=== PATIENT | male | born 1990 | race American Indian/Alaskan Native ===

== ENCOUNTER 2019-04-18 18:47 | Emergency (ER) | payer MEDICAID ==
--- NOTE | 2019-04-18 19:07 | EDM.PDOC ---
ED HPI GENERAL MEDICAL PROBLEM - General Chief Complaint: Drug or Alcohol Abuse Stated Complaint: [facility] Time Seen by Provider: 04/18/19 19:00 Source of Information: Reports: Residential Records History Limitations: Reports: Other (Patient is nonverbal.) - History of Present Illness INITIAL COMMENTS - FREE TEXT/NARRATIVE: Patient is brought by ambulance from his correction setting apparently because staff there wants to find out if he is using methamphetamine. He has been seen with a similar concern 24 hours ago at [facility] in [place]. He was kept overnight due to weather and discharged back to his facility. We have no records accompanying him regarding these concerns. Onset: Unknown/Unsure Duration: Day(s): Severity: Mild - Related Data Allergies Allergy/AdvReac Type Severity Reaction Status Date / Time amoxicillin [From Augmentin] Allergy Cannot Verified 04/18/19 19:57 Remember clavulanic acid Allergy Cannot Verified 04/18/19 19:57 [From Augmentin] Remember codeine Allergy Cannot Verified 04/18/19 19:57 Remember diazepam [From Valium] Allergy Cannot Verified 04/18/19 19:57 Remember Penicillins Allergy Cannot Verified 04/18/19 19:57 Remember phenobarbital Allergy Cannot Verified 04/18/19 19:57 Remember vancomycin Allergy Cannot Verified 04/18/19 19:57 Remember Home Meds: Home Meds Amitriptyline [Elavil] 04/18/19 [History] Divalproex Sodium [Depakote Sprinkle] 4 cap PO TID 04/18/19 [History] Erythromycin Base [Erythromycin 0.5% Ophth Oint] 1 strip EYEBOTH DAILY 04/18/19 [History] Topiramate 1 tab PO BID 04/18/19 [History] levETIRAcetam [Keppra] 1 tab PO BID 04/18/19 [History] ED ROS GENERAL - Review of Systems Review Of Systems: Unable To Obtain (The patient will nod his head yes or no to questions but it is difficult to know how well he has processing my request for information.) Reason Not Obtained: The patient is nonverbal. Constitutional: Denies: Fever HEENT: Reports: No Symptoms Respiratory: Reports: No Symptoms Cardiovascular: Reports: No Symptoms Psychiatric: Denies: Agitation ED EXAM, GENERAL - Physical Exam Exam: See Below Exam Limited By: Language Barrier (The patient does not communicate verbally but nods his head yes or no to questions. He is standing in the room as I come to speak with him and appears to prefer that to sitting in a chair.) General Appearance: Alert, No Apparent Distress Neck: Non-Tender Respiratory/Chest: Lungs Clear Cardiovascular: Regular Rate, Rhythm Psychiatric: Flat Affect Course - Vital Signs Last Recorded V/S: Last Vital Signs Temp 36.9 C 04/18/19 20:51 Pulse 73 04/18/19 20:51 Resp 14 04/18/19 20:51 BP 117/74 04/18/19 20:51 Pulse Ox 98 04/18/19 20:51 - Orders/Labs/Meds Labs: Laboratory Tests 04/18/19 04/18/19 Range/Units 19:31 19:31 Urine Color Yellow (YELLOW) Urine Appearance Slightly cloudy A (CLEAR) Urine pH 6.0 (5.0-8.0) Ur Specific [place] 1.025 (1.008-1.030) Urine Protein Trace H (NEGATIVE) mg/dL Urine Glucose (UA) Negative (NEGATIVE) mg/dL Urine Ketones 40 H (NEGATIVE) mg/dL Urine Occult Blood Trace-lysed H (NEGATIVE) Urine Nitrite Negative (NEGATIVE) Urine Bilirubin Moderate H (NEGATIVE) Urine Urobilinogen >=8.0 H (0.2-1.0) EU/dL Ur Leukocyte Esterase Negative (NEGATIVE) Urine RBC 5-10 H (0-5) Urine WBC 0-5 (0-5) Ur Epithelial Cells Few Amorphous Sediment Not seen Urine Bacteria Moderate Urine Mucus Many Urine Opiates Screen Negative (NEGATIVE) Ur Oxycodone Screen Negative (NEGATIVE) Urine Methadone Screen Negative (NEGATIVE) Ur Propoxyphene Screen Negative (NEGATIVE) Ur Barbiturates Screen Negative (NEGATIVE) Ur Tricyclics Screen Presumptive positive H (NEGATIVE) Ur Phencyclidine Scrn Negative (NEGATIVE) Ur Amphetamine Screen Presumptive positive H (NEGATIVE) U Methamphetamines Scrn Presumptive positive H (NEGATIVE) Urine MDMA Screen Negative (NEGATIVE) U Benzodiazepines Scrn Presumptive positive H (NEGATIVE) U Cocaine Metab Screen Negative (NEGATIVE) U Marijuana (THC) Screen Negative (NEGATIVE) Meds: Medications Discontinued Medications Generic Name Dose Route Start Last Admin Trade Name Freq PRN Reason Stop Dose Admin Lorazepam 0.5 mg 04/18/19 19:54 04/18/19 21:24 Ativan PO 04/18/19 19:55 0.5 mg ONETIME ONE Administration - Re-Assessments/Exams Free Text/Narrative Re-Assessment/Exam: 04/18/19 19:51 Physical exam is unremarkable at this time or an testing is pending. 04/19/19 03:07 A urine sample was obtained eventually which showed normal general urinalysis but drug screen was positive for tricyclic products, amphetamines, benzodiazepines. We discussed with the patient that there is no acute need for him to be in the hospital. Nursing staff made a number of coordinating phone calls with staff at his residential setting. They sent him here because they don 't feel they can deal with him and his care setting anymore and nursing explained to them that we do not have a reason to have him in the hospital just because his behavior there is bad. They have no as needed medications for times where he gets agitated. Any agitation could be the result of amphetamines or it could be a long-term intermittent sequela to his closed head injury. Prescriptions sent for lorazepam 0.5 mg, 12 tablets; use as directed. He was given a dose in the department of lorazepam 0.5 mg prior to departure. He was able to walk to his transport vehicle. Departure - Departure Time of Disposition: 21:40 Disposition: DC/Tfer to Other 70 Condition: Good Clinical Impression: Aggression, TBI (traumatic brain injury), Positive urine drug screen - Discharge Information *PRESCRIPTION DRUG MONITORING PROGRAM REVIEWED*: Not Applicable *COPY OF PRESCRIPTION DRUG MONITORING REPORT IN PATIENT JUAN CARLOS: Not Applicable Instructions: How to Help Your Child [place] With Anger Referrals: PCP,None [Primary Care Provider] - Forms: ED Department Discharge Additional Instructions: Use lorazepam during episodes of agitation. Have your care facility contact coordinating doctors to arrange when necessary medications for future episodes such as this. Sepsis Event Note - Focused Exam Vital Signs: Vital Signs Temp Pulse Resp BP Pulse Ox 04/18/19 20:51 36.9 C 73 14 117/74 98 04/18/19 19:06 36.9 C 73 14 117/74 98 Date Exam was Performed: 04/19/19 Time Exam was Performed: 03:01
[2019-04-18] MEDS ORDERED: LORazepam 0.5 MG Tab PO ONE (19:54)
== END 2019-04-18 22:15 | disposition other institution (70) ==
LOC: JP.ED 18:47
DX: R82.5 Elevated urine levels of drugs, medicaments and biological substances (principal); S06.9X0S Unspecified intracranial injury without loss of consciousness, sequela; F91.9 Conduct disorder, unspecified; Z88.8 Allergy status to other drugs, medicaments and biological substances; Z88.1 Allergy status to other antibiotic agents; Z88.0 Allergy status to penicillin; Z88.5 Allergy status to narcotic agent; Z79.899 Other long term (current) drug therapy; X58.XXXS Exposure to other specified factors, sequela
CPT/HCPCS: 80305-QW; 81001; 99283; 99284; A9270-GY